=== PATIENT | male | born 2000 | race Caucasian/White ===

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

== ENCOUNTER 2021-04-21 21:47 | Emergency (ER) | payer BC ==
[2021-04-21 22:04] VITALS: BP 137/85; PULSE 68; RESP 16; TEMP 97.8
[2021-04-21] MEDS ORDERED: KETOROLAC 15 MG/ML 1 ML VIAL IM STA (22:23)
--- NOTE | 2021-04-21 22:38 | XR ---
EXAMINATION TYPE: XR finger LT DATE OF EXAM: 04/21/2021 COMPARISON: NONE HISTORY: Pain TECHNIQUE: 3 views FINDINGS: I see no fracture nor dislocation. IP joint spaces are normal. Soft tissues appear normal. IMPRESSION: Normal left index finger exam. No fracture.
[2021-04-21] MEDS ORDERED: TOPICAL SKIN ADHESIVE 1 EACH AMP TOPICAL ONE (22:50)
--- NOTE | 2021-04-21 23:16 | ED ---
Upper Extremity HPI - General Chief Complaint: Extremity Injury, Upper Stated Complaint: Finger Injury Time Seen by Provider: 04/21/21 22:00 Source: patient, RN notes reviewed Mode of arrival: ambulatory Limitations: no limitations - History of Present Illness Initial Comments: Patient is a 20-year-old male that presents to emergency room complaining of left index finger pain. He notes that his dog ran a door shut his finger it. He notes that the pain is approximately 10 out of 10 with no relief. He notes that he can wiggle the metacarpophalangeal joint but it is painful to move the rest of his finger. He does have full sensation is full finger. He did have a small laceration to the pad of his index finger. He denied any other issues or complaints at this time. He denied any chest pain this of breath headache nausea vomiting diarrhea constipation fever fatigue chills. - Related Data Home Medications Medication Instructions Recorded Confirmed Dextroamphetamine/Amphetamine 15 mg PO DAILY 12/25/15 12/25/15 [Adderall Xr] Previous Rx's Medication Instructions Recorded Ondansetron [Zofran ODT] 4 mg PO Q8HR PRN #15 tab 04/03/19 Allergies Allergy/AdvReac Type Severity Reaction Status Date / Time No Known Allergies Allergy Verified 04/21/21 22:00 Review of Systems ROS Statement: Those systems with pertinent positive or pertinent negative responses have been documented in the HPI. ROS Other: All systems not noted in ROS Statement are negative. Past Medical History Past Medical History: Asthma History of Any Multi-Drug Resistant Organisms: None Reported Past Surgical History: No Surgical Hx Reported Additional Past Surgical History / Comment(s): facial surgey Past Psychological History: ADD/ADHD Smoking Status: Current every day smoker Past Alcohol Use History: None Reported, Rare Past Drug Use History: Marijuana General Exam Limitations: no limitations General appearance: alert, in no apparent distress Head exam: Present: atraumatic, normocephalic, normal inspection Eye exam: Present: normal appearance, PERRL, EOMI. Absent: scleral icterus, conjunctival injection, periorbital swelling Neck exam: Present: normal inspection Respiratory exam: Present: normal lung sounds bilaterally. Absent: respiratory distress, wheezes, rales, rhonchi, stridor Cardiovascular Exam: Present: regular rate, normal rhythm, normal heart sounds. Absent: systolic murmur, diastolic murmur, rubs, gallop, clicks GI/Abdominal exam: Present: soft, normal bowel sounds. Absent: distended, tenderness, guarding, rebound, rigid Extremities exam: Present: normal inspection, full ROM, normal capillary refill. Absent: tenderness, pedal edema, joint swelling, calf tenderness Neurological exam: Present: alert, oriented X3 Psychiatric exam: Present: normal affect, normal mood Skin exam: Present: warm, dry, intact, normal color. Absent: rash Course Vital Signs 04/21/21 22:01 Temperature 97.8 F Pulse Rate 68 Respiratory 16 Rate Blood Pressure 137/85 O2 Sat by Pulse 98 Oximetry Procedures - Orthopedic Splinting/Casting Injury #1 Side: left Upper Extremity Injury Location: finger (Index) Upper Extremity Immobilizer: aluminum form splint Medical Decision Making - Medical Decision Making 20-year-old male complaining of left index finger after having shut a door. X-ray of the left index finger, 15 mg of Toradol ordered. X-ray negative for any acute osseous antibody. Finger will be splinted after skin tunneling the small laceration to the distal pad of the index finger. Case discussed with Dr. Hopper, she can discharge home with follow-up primary care. - Radiology Data Radiology results: report reviewed, image reviewed X-ray left index finger: Normal left index finger exam. No fracture. Disposition Clinical Impression: Sprain of left index finger, Laceration Disposition: HOME SELF-CARE Condition: Stable Instructions (If sedation given, give patient instructions): Hand Sprain (ED) Additional Instructions: Please return to the Emergency Department if symptoms worsen or any other concerns. Follow-up primary care next 1-2 days. Take Tylenol and Motrin as needed for pain. Leave splint on throughout the day to avoid any unnecessary bumping. Is patient prescribed a controlled substance at d/c from ED?: No Referrals: Vidya Hills DO [Primary Care Provider] - 1-2 days Time of Disposition: 23:16
== END 2021-04-21 23:39 | disposition home or self-care (01) ==
LOC: EC 21:47
DX: S61.211A Laceration without foreign body of left index finger without damage to nail, initial encounter (principal); F90.9 Attention-deficit hyperactivity disorder, unspecified type; F17.200 Nicotine dependence, unspecified, uncomplicated; F12.90 Cannabis use, unspecified, uncomplicated; Z79.899 Other long term (current) drug therapy; W23.0XXA Caught, crushed, jammed, or pinched between moving objects, initial encounter
CPT/HCPCS: 73140; 96372; 99283; J1885